=== PATIENT | male | born 1970 | race Caucasian/White ===

== ENCOUNTER 2016-08-05 11:08 | Observation (INO) | payer OTHER ==
[~2016-08-05] VITALS: Ht 182.9 cm; Wt 133.9 kg
[~2016-08-05 11:08] MED LIST: AZITHROMYCIN250 MG PO; CEFDINIR300 MG PO; CELEXA20 MG PO; DUONEB 2.5-0.5MG3 ML NEB; K-TAB ER10 MEQ PO; LASIX20 MG PO; LIPITOR20 MG PO; MAGNESIUM OXID400 MG PO; MEDROL4 M1 PO; NICODERM 21MG PA1 EA TD; PAIN RELIEVER650 MG PO; PRILOSEC20 MG PO; REQUIP0.25 MG PO; SYNTHROID100 MCG PO; TOPROL XL25 MG PO; TRICOR145 MG PO
[2016-08-05 11:43] LABS: BASO # 0.1 10_X3_uL (0.0-0.1); BASO % 0.7 % (0.2-1.2); EOS # 0.1 10_X3_uL (0.0-0.5); GRAN # 7.1 10_X3_uL (1.8-5.4); GRAN % 84.1 % (34.0-67.9); HEMATOCRIT 44.6 % (40-51); LYMPH # 0.7 10_X3_uL (1.3-3.6); LYMPH % 8.4 % (21.8-53.1); MEAN CORPUSCULAR HEMOGLOBIN 30.3 pg (27.0-33.0); MEAN CORPUSCULAR HGB CONC 33.6 g/dL (32.0-36.0); MEAN CORPUSCULAR VOLUME 90.1 fL (79-92); MEAN PLATELET VOLUME 10.1 fl (7.5-11.5); MONO # 0.5 10_X3_uL (0.3-0.8); MONO % 5.8 % (5.3-12.2); PLATELET COUNT 239 x10_3/uL (163-337); RED BLOOD COUNT 4.95 x10_6/uL (4.6-6.1); RED CELL DISTRIBUTION WIDTH 14.5 % (11.6-14.4); WHITE BLOOD COUNT 8.4 x10_3/uL (4.2-9.1)
[2016-08-05 12:12] LABS: BLOOD UREA NITROGEN 7 mg/dL (7-18); CALCIUM 8.8 mg/dL (8.7-10.7); CARBON DIOXIDE 26 mmol/L (21-32); GLUCOSE,RANDOM 185 mg/dL (70-99); SODIUM 135 mmol/L (136-145)
[2016-08-06 07:05] LABS: BASO % 0.1 % (0.2-1.2); GRAN % 88.6 % (34.0-67.9); HEMATOCRIT 45.4 % (40-51); LYMPH % 6.5 % (21.8-53.1); MEAN CORPUSCULAR HEMOGLOBIN 30.1 pg (27.0-33.0); MEAN PLATELET VOLUME 10.2 fl (7.5-11.5); MONO # 0.7 10_X3_uL (0.3-0.8); MONO % 4.8 % (5.3-12.2); PLATELET COUNT 272 x10_3/uL (163-337); RED BLOOD COUNT 4.99 x10_6/uL (4.6-6.1); RED CELL DISTRIBUTION WIDTH 14.6 % (11.6-14.4); WHITE BLOOD COUNT 14.7 x10_3/uL (4.2-9.1)
[2016-08-06 07:20] LABS: BLOOD UREA NITROGEN 15 mg/dL (7-18); CALCIUM 9.4 mg/dL (8.7-10.7); CARBON DIOXIDE 23 mmol/L (21-32); GLUCOSE,RANDOM 196 mg/dL (70-99); POTASSIUM 4.1 mmol/L (3.5-5.1); SODIUM 137 mmol/L (136-145)
[2016-08-07 06:36] LABS: BASO % 0.1 % (0.2-1.2); EOS # 0.1 10_X3_uL (0.0-0.5); EOS % 0.2 % (0.8-7.0); GRAN # 18.6 10_X3_uL (1.8-5.4); GRAN % 87.8 % (34.0-67.9); HEMATOCRIT 46.3 % (40-51); HEMOGLOBIN 15.3 g/dL (13.7-17.5); LYMPH # 1.7 10_X3_uL (1.3-3.6); MEAN CORPUSCULAR HEMOGLOBIN 30.5 pg (27.0-33.0); MEAN CORPUSCULAR VOLUME 92.4 fL (79-92); MEAN PLATELET VOLUME 10.7 fl (7.5-11.5); MONO # 0.8 10_X3_uL (0.3-0.8); MONO % 3.9 % (5.3-12.2); PLATELET COUNT 292 x10_3/uL (163-337); RED BLOOD COUNT 5.01 x10_6/uL (4.6-6.1)
[2016-08-07 06:41] LABS: WHITE BLOOD COUNT 21.1 x10_3/uL (4.2-9.1)
[2016-08-07 06:48] LABS: BLOOD UREA NITROGEN 16 mg/dL (7-18); CALCIUM 8.8 mg/dL (8.7-10.7); CARBON DIOXIDE 24 mmol/L (21-32); CREATININE 1.1 mg/dL (0.6-1.3); GLUCOSE,RANDOM 201 mg/dL (70-99); POTASSIUM 3.9 mmol/L (3.5-5.1); SODIUM 137 mmol/L (136-145)
[2016-08-08 06:34] LABS: HEMATOCRIT 45.9 % (40-51); HEMOGLOBIN 15.1 g/dL (13.7-17.5); MEAN CORPUSCULAR HEMOGLOBIN 30.2 pg (27.0-33.0); MEAN CORPUSCULAR HGB CONC 32.9 g/dL (32.0-36.0); MEAN CORPUSCULAR VOLUME 91.8 fL (79-92); MEAN PLATELET VOLUME 10.1 fl (7.5-11.5); RED CELL DISTRIBUTION WIDTH 14.9 % (11.6-14.4)
[2016-08-08 06:52] LABS: BLOOD UREA NITROGEN 19 mg/dL (7-18); CALCIUM 9.2 mg/dL (8.7-10.7); CARBON DIOXIDE 26 mmol/L (21-32); CREATININE 1.2 mg/dL (0.6-1.3); GLUCOSE,RANDOM 121 mg/dL (70-99); POTASSIUM 3.4 mmol/L (3.5-5.1); SODIUM 139 mmol/L (136-145)
== END 2016-08-08 11:45 | disposition home or self-care (01) ==
LOC: ER 11:08 → MS 13:54 → UNDODEPER 08-08 13:55
PROVIDERS: General Practice; ADMIT Family Medicine
PROC: 3E0234Z Introduction of Serum, Toxoid and Vaccine into Muscle, Percutaneous Approach (ICD-10-PCS; principal; 2016-08-08)
DX: J44.1 Chronic obstructive pulmonary disease with (acute) exacerbation (principal); E11.9 Type 2 diabetes mellitus without complications; G47.33 Obstructive sleep apnea (adult) (pediatric); J60 Coalworker's pneumoconiosis; R07.81 Pleurodynia; R10.9 Unspecified abdominal pain; M25.572 Pain in left ankle and joints of left foot; M25.571 Pain in right ankle and joints of right foot; R51 Headache; I10 Essential (primary) hypertension; G40.909 Epilepsy, unspecified, not intractable, without status epilepticus; J45.909 Unspecified asthma, uncomplicated; E03.9 Hypothyroidism, unspecified; R53.1 Weakness; M79.1 Myalgia; I50.9 Heart failure, unspecified; G25.81 Restless legs syndrome; Z79.891 Long term (current) use of opiate analgesic; Z79.899 Other long term (current) drug therapy; Z82.49 Family history of ischemic heart disease and other diseases of the circulatory system; Z80.3 Family history of malignant neoplasm of breast; Z99.81 Dependence on supplemental oxygen; Z23 Encounter for immunization
CPT/HCPCS: 36415; 71020; 80048; 80061; 80198; 82962; 83036; 83605; 83880; 84132; 84443; 85025; 85379; 86738; 87040; 87070; 87205; 87400; 87449; 90732; 94640; 94660; 94664; 96365; 96366; 96367; 96372; 96376; 99070; 99284; 99284-25; G0009; G0378; J2930